=== PATIENT | female | born 1985 | race Caucasian/White ===

== ENCOUNTER → 2016-08-31 | Day surgery (SDC) | payer MEDICAID ==
[~2016-08-31] MED LIST: Sodium Chloride 0.9% 1,000 ML IV SCH; Sodium Chloride 0.9% 10 ML Syringe FLUSH PRN
== END ==
LOC: LB.SDS 09:22
PROVIDERS: ATTEND Surgery
DX: K30 Functional dyspepsia (principal); Z53.8 Procedure and treatment not carried out for other reasons

== ENCOUNTER 2016-09-28 09:21 | Day surgery (SDC) | payer MEDICAID ==
[2016-09-28] MEDS ORDERED: Propofol 200 MG/20 ML SDV ONE ×2 (10:45→11:15)
[2016-09-28 14:32] VITALS: BP 128/70
--- NOTE | 2016-09-30 12:55 | OR ---
DATE OF OPERATION: 09/28/2016 PREOPERATIVE DIAGNOSES: Epigastric pain and heartburn. POSTOPERATIVE DIAGNOSES: Bile reflux and gastritis. PROCEDURE: Esophagogastroduodenoscopy with cold forceps biopsies. ANESTHESIA: General per the Department of Anesthesia. ESTIMATED BLOOD LOSS: Less than 20 mL. OPERATIVE REPORT: After informed consent was obtained, the patient was taken to the endoscopy suite and placed in the left lateral decubitus position with all pressure points, bony prominences, and neurovascular bundles padded appropriately and with no undue tension. The Department of Anesthesia initiated cardiopulmonary monitoring and performed sedation. A bite block was placed carefully in the patient's mouth to protect the teeth. Through the bite block, a well lubricated Olympus endoscope was advanced into the oropharynx and guided under direct visualization into the esophagus. The endoscope was advanced through the esophagus across the gastroesophageal junction and into the body of the stomach where a copious amount of bile was encountered, although the patient had not been retching. The scope was then advanced through the pylorus and into the duodenum where no further pathology was encountered. The scope was withdrawn back into the body of the stomach. The bile was aspirated using the scope suction. Streak gastritis was noted and photographed. The scope was then retroflexed to view the gastroesophageal junction from below and no hiatal hernia or other pathology was identified. Cold forceps biopsies were taken of the antrum and also of the GE junction. The scope was straightened, as much air as possible was evacuated, and the scope was slowly withdrawn throughout the course of the esophagus. Again, no further pathology was appreciated. The scope was removed from the oropharynx and the bite block was removed. The patient tolerated the procedure well and was taken to the postanesthesia care unit in stable condition. A discussion about reflux was held with the patient and her mother and a prescription for cholestyramine was given for 4 times a day to be used for 2 weeks. The patient also was instructed to eat 5-6 small meals daily to allow fluid to mix with the bile for the ongoing future to avoid further bile reflux and subsequent gastritis and heartburn. NO/ELVIRA /[id number]
== END 2016-09-28 12:20 | disposition home or self-care (01) ==
LOC: LB.SDS 09:21
PROVIDERS: ATTEND Surgery
DX: K29.70 Gastritis, unspecified, without bleeding (principal); Z88.1 Allergy status to other antibiotic agents; Z88.2 Allergy status to sulfonamides; Z88.8 Allergy status to other drugs, medicaments and biological substances; Z79.899 Other long term (current) drug therapy
CPT/HCPCS: 43239; J2704; J7040; J7050; 88305

== ENCOUNTER 2017-02-27 06:42 | Emergency (ER) | payer MEDICAID ==
[2017-02-27] MEDS ORDERED: Ondansetron 4 MG Tab.DIS ONE (06:50)
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
[2017-02-27 08:30] VITALS: BP 137/89
--- NOTE | 2017-02-27 14:57 | CT ---
DATE OF SERVICE: 02/27/17 CLINICAL DATA: Head trauma. UNENHANCED BRAIN CT: Multi slice acquisition through the brain without IV contrast was performed. There is a 12 mm rounded low density focus in the area of the lentiform nucleus on the left. This is nonspecific in appearance. It may represent an old lacunar infarct. Other etiologies should at least be considered. The exam is otherwise negative. No masses. No intracranial hemorrhage. No evidence of acute or subacute infarct. There is minimal mucosal thickening in the ethmoid sinuses, consistent with chronic sinusitis. [id number] MTDD
== END 2017-02-27 08:00 | disposition home or self-care (01) ==
LOC: LB.ED 06:42
DX: S09.90XA Unspecified injury of head, initial encounter (principal); S60.212A Contusion of left wrist, initial encounter; S00.12XA Contusion of left eyelid and periocular area, initial encounter; S00.83XA Contusion of other part of head, initial encounter; F17.210 Nicotine dependence, cigarettes, uncomplicated; Z88.2 Allergy status to sulfonamides; Z79.899 Other long term (current) drug therapy; W22.8XXA Striking against or struck by other objects, initial encounter
CPT/HCPCS: 70450; 99283; A9270

== ENCOUNTER 2017-08-30 12:21 | Emergency (ER) | payer MEDICAID ==
[2017-08-30] MEDS ORDERED: Ondansetron 4 MG Tab.DIS PO ONE (12:49)
[2017-08-30] MEDS ORDERED: Ondansetron 4 MG Tab.DIS ONE (12:52)
[2017-08-30 13:31] VITALS: BP 148/91
--- NOTE | 2017-08-30 17:06 | CR ---
DATE OF SERVICE: 08/30/17 CLINICAL DATA: Abd pain SUPINE AND UPRIGHT ABDOMEN: No dilated loops of bowel. There are a few scattered air-fluid levels in the right colon on the upright film. Colitis should be considered. Followup imaging is recommended if clinically indicated. No free air. There are surgical clips in the right upper abdomen. [id number] [facility]
--- NOTE | 2017-08-30 22:14 | ER ---
DATE OF SERVICE: 08/30/2017 HISTORY OF PRESENT ILLNESS: A 32-year-old lady here with her mother with complaints of waking up this morning with nausea, abdominal discomfort, and loose stools. The patient states that she has vomited five times since she woke up this morning and she has had three loose BMs. The patient has not been running a fever. She denies any falls or injuries. She is pointing to the central area of the abdomen when describing the area of discomfort. The patient states she is having a hard time keeping down any liquid or food. No other family members are currently sick. The patient's last menstrual period was 2 weeks ago. OBJECTIVE: GENERAL APPEARANCE: The patient is awake and alert. No obvious respiratory distress. VITAL SIGNS: Reviewed. Blood pressure 148/91. She is afebrile. Pulse is 82, respirations 16, O2 sats are 97%. LUNGS: Clear. CARDIAC: Heart sounds distinct without murmurs. ABDOMEN: Soft. There is tenderness without guarding involving the mid portion of the abdomen just above the umbilicus and to the right side. Bowel sounds are present and active. SKIN: Warm and dry. INITIAL TREATMENT: Zofran 4 mg was given sublingually. LABORATORY DATA: Labs today include a CBC which has a normal white count with decreased viral markers. CMP is unremarkable and UA is normal. DIAGNOSIS: Gastroenteritis. TREATMENT PLAN: The Zofran resolved the patient's nausea. We will send her home. I will give her a script for 6 more Zofran tablets to use every 4 hours as needed for nausea. Oral rehydration techniques were discussed at length with the patient, and she is to rest for a day or 2. Followup should be if her symptoms get worse or if she is not improving within a couple of days. I gave her slip to be off work today and possibly tomorrow. CRS/MODL /[id number] LILIANA
== END 2017-08-30 13:50 | disposition home or self-care (01) ==
LOC: LB.ED 12:21
DX: K52.9 Noninfective gastroenteritis and colitis, unspecified (principal)
CPT/HCPCS: 36415; 74019; 80053; 81001; 85025; 99284; A9270-GY

== ENCOUNTER 2018-08-26 10:22 | Emergency (ER) | payer MEDICAID ==
--- NOTE | 2018-08-26 18:54 | ER ---
SUBJECTIVE: The patient is a 33-year-old female who had a right ACL repair done. This was a secondary repair. She had a previous one done. She had this surgery done yesterday. She is concerned because the blood soaked through the bandages. This morning, she took the bandages off and replaced them at about 8 o'clock. She presented here about 2-1/2 to 3 hours later. The patient did have some blood on the dressing, but only a few mL. The dressing was removed, and it did not appear to be actively bleeding. She was concerned because she had a temperature of 99.2. She also notes she has some pain in the knee. She got 15 pain pills from the surgeon, and she states they told her that if she needed anymore, she should come here. I discussed with her that the surgeon is the one who is prescribing her pain medication, and she will need to get them from the surgeon for this problem. Otherwise, she seems to be doing okay. ALLERGIES: BACTRIM AND COMPAZINE. CURRENT MEDICATIONS: Trazodone, venlafaxine, and sertraline. She is on Xarelto 20 mg p.o. daily. She had been getting Lovenox prior to her surgery. She has a history of DVTs and has a blood clotting disorder. She also takes Klonopin. I am not sure that medication list is accurate. It is from the computer, but she is definitely taking the Xarelto. PHYSICAL EXAMINATION: GENERAL: She is alert, oriented, in no apparent distress. VITAL SIGNS: Temperature as noted is 99.2, pulse is 78, blood pressure is 154/81, O2 saturation is 97% on room air. EXTREMITIES: The knee incision has a little bit of moisture on the Steri-Strips and some have peeled off. It appears to have subcuticular sutures, but I did not remove all of the Steri-Strips. There is currently no active bleeding. The knee is not particularly swollen. It is not ecchymotic. There is some mild warmth but no erythema, and it does not appear to have a hematoma in the knee or infection at this point looking at the skin. Again, it is not actively bleeding. The incision area is moist, but there is no obvious blood draining from it. After taking off the bandage and monitoring in the ER, there is no new blood coming out of it. She probably has in the last couple of hours a few mL of blood on the dressing. She is on Xarelto and again, there is no active bleeding at the skin site and it does not appear to be accumulating a hematoma. Again, there is no ecchymosis other than very minimal at the very posterior aspect of the incision. It has just a slight bluish tint, but again, it is not swollen. There is no obvious hematoma, and the knee appears to be doing well. ASSESSMENT: Postoperative bleeding. At this point, I do not think the patient needs any intervention as it should stop on its own. I would continue to change the dressings and if she feels the bleeding is excessive or is worsening, would have her return to clinic. As far as her pain medications go, she does have a previous history of substance abuse, and this is being managed by the surgeon, and she will need to get any refills for that from the surgeon. Again, no signs of infection at present or any bleeding into the incision, and the wound itself. The skin incision is not actively bleeding. MENDEZ/ELVIRA /[id number]
== END 2018-08-26 10:55 | disposition home or self-care (01) ==
LOC: LB.ED 10:22
DX: M96.830 Postprocedural hemorrhage of a musculoskeletal structure following a musculoskeletal system procedure (principal); Z79.899 Other long term (current) drug therapy; Z88.1 Allergy status to other antibiotic agents; Z88.8 Allergy status to other drugs, medicaments and biological substances
CPT/HCPCS: 99283

== ENCOUNTER 2018-11-01 15:45 | Emergency (ER) | payer MEDICAID ==
--- NOTE | 2018-11-01 16:06 | EDM.PDOC ---
ED HPI GENERAL MEDICAL PROBLEM - General Chief Complaint: Headache Stated Complaint: Headache Time Seen by Provider: 11/01/18 16:06 Source of Information: Reports: Patient History Limitations: Reports: No Limitations - History of Present Illness INITIAL COMMENTS - FREE TEXT/NARRATIVE: This is a 33yo F here for a headache for the past week since Tuesday. She states the pain of the posterior right scalp woke her up from sleep at a 10/10. She felt a sharp knife like sensation of the scalp and skull near the right base move up into the scalp and to the ear. It improved to a 4/10. A few days later she felt the pain again and it was a throbbing that was severe and her face turned all red. Her mother is worried of a brain bleed as the patient is on Xarelto and has been for many years due to her diagnosis of Factor V. Patient denies any visual concerns, no weaknesses, no balance or memory issues. 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 - Related Data Allergies Allergy/AdvReac Type Severity Reaction Status Date / Time sulfamethoxazole Allergy Rash Verified 11/01/18 16:11 [From Bactrim] trimethoprim [From Bactrim] Allergy Rash Verified 11/01/18 16:11 prochlorperazine maleate AdvReac Severe Agitation Verified 11/01/18 16:11 [From Compazine] Home Meds: Home Meds Rivaroxaban [Xarelto] 20 mg PO DAILY 09/27/16 [History] Ibuprofen 800 mg PO TID 02/05/18 [History] ALPRAZolam [Alprazolam] 0.25 mg PO TID PRN 11/01/18 [History] Gabapentin [Neurontin] 100 mg PO TID 11/01/18 [History] Mirtazapine 30 mg PO QPM PRN 11/01/18 [History] PARoxetine HCl [Paroxetine HCl] 20 mg PO DAILY 11/01/18 [History] PARoxetine HCl [Paroxetine HCl] 30 mg PO DAILY 11/01/18 [History] QUEtiapine [SEROquel] 50 mg PO TID PRN 11/01/18 [History] hydrOXYzine HCl [Atarax] 50 - 100 mg PO TID PRN 11/01/18 [History] Past Medical History HEENT History: Reports: Impaired Vision Other HEENT History: Pt had a tooth pulled on tuesday Cardiovascular History: Reports: Blood Clots/VTE/DVT, Hypertension, Other (See Below) Other Cardiovascular History: Factor S Factor V Gastrointestinal History: Reports: Other (See Below) Other Gastrointestinal History: Hx Duodenal Spasms 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 Musculoskeletal History: Reports: Fracture Other Musculoskeletal History: ACL, LCL surgery Neurological History: Reports: Other (See Below) Other Neuro History: [place] Palsey Psychiatric History: Reports: Anxiety, Depression Endocrine/Metabolic History: Reports: Obesity/BMI 30+ Hematologic History: Reports: Bleeding Disorder Other Hematologic History: S factor 5, 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 Oncologic (Cancer) History: Reports: Other (See Below) Other Oncologic History: Hx precancerous pap smear - Infectious Disease History Infectious Disease History: Reports: Chicken Pox - Past Surgical History HEENT Surgical History: Reports: Tonsillectomy, Other (See Below) Other HEENT Surgeries/Procedures: adnoids, current history of abcess of multiple teeth Cardiovascular Surgical History: Reports: None GI Surgical History: Reports: Cholecystectomy Musculoskeletal Surgical History: Reports: Other (See Below) Other Musculoskeletal Surgeries/Procedures:: meniscus repair - Right , ACL , - Left ACL, LCL, meniscus Social & Family History - Family History Family Medical History: Noncontributory - Caffeine Use Caffeine Use: Reports: Energy Drinks ED ROS GENERAL - Review of Systems Review Of Systems: ROS reveals no pertinent complaints other than HPI. - Physical Exam Exam: See Below Exam Limited By: No Limitations General Appearance: Alert, WD/WN, Mild Distress Eye Exam: Bilateral Eye: EOMI, PERRL Ears: Normal External Exam Nose: Normal Inspection Throat/Mouth: Normal Inspection Head Exam: Atraumatic, Normocephalic Neck: Normal Inspection Respiratory/Chest: No Respiratory Distress, Lungs Clear, Normal Breath Sounds Cardiovascular: Normal Peripheral Pulses, Regular Rate, Rhythm GI/Abdominal: Normal Bowel Sounds Neuro Exam (Abbreviated): Alert, Oriented, CN II-XII Intact, Normal Cognition, Normal Gait, Normal Reflexes, No Motor/Sensory Deficits Back Exam: Normal Inspection Extremities: Normal Inspection Psychiatric: Normal Affect, Normal Mood Skin Exam: Warm, Dry, Intact Course - Vital Signs Last Recorded V/S: Last Vital Signs Temp 36.7 C 11/01/18 15:51 Pulse 96 11/01/18 15:51 Resp 18 11/01/18 15:51 BP 147/93 H 11/01/18 15:51 Pulse Ox 99 11/01/18 15:51 - Orders/Labs/Meds Labs: Laboratory Tests 11/01/18 11/01/18 11/01/18 Range/Units 16:10 16:10 16:10 WBC 13.1 H (4.0-11.0) K/uL RBC 5.06 (3.80-5.80) M/uL Hgb 14.2 (11.5-16.5) g/dL Hct 41.8 (37.0-47.0) % MCV 83 (76-96) fL MCH 28.1 (27.0-32.0) pg MCHC 34.0 (31.0-35.0) g/dL RDW 13.2 (11.0-16.0) % Plt Count 243 (150-500) K/uL MPV 10.1 H (6.0-10.0) fL Neut % (Auto) 75.6 H (45.0-70.0) % Lymph % (Auto) 19.7 L (20.0-40.0) % Dunn % (Auto) 4.1 (3.0-10.0) % Eos % (Auto) 0.5 L (1.0-5.0) % Baso % (Auto) 0.1 (0.0-0.5) % Neut # (Auto) 9.94 H (2.00-7.50) K/uL Lymph # (Auto) 2.59 (1.50-4.00) K/uL Dunn # (Auto) 0.54 (0.20-0.80) K/uL Eos # (Auto) 0.06 (0.04-0.40) K/uL Baso # (Auto) 0.01 L (0.02-0.10) K/uL PT 9.0 D (9.0-11.5) sec INR 0.9 L D (1.0-3.5) Sodium 138 (136-145) mmol/L Potassium 4.2 (3.5-5.1) mmol/L Chloride 102 (98-107) mmol/L Carbon Dioxide 24.8 (21.0-32.0) mmol/L Anion Gap 15.4 H (5.0-15.0) mmol/L BUN 17 D (8-26) mg/dL Creatinine 0.83 (0.55-1.02) mg/dL Est Cr Clr Drug Dosing TNP Estimated GFR (MDRD) > 60 (>60) MLS/MIN BUN/Creatinine Ratio 20.5 (6-25) Glucose 111 H (74-100) mg/dL Calcium 8.8 (8.5-10.1) mg/dL Total Bilirubin 0.2 D (0.0-1.0) mg/dL AST 12 L (15-37) U/L ALT 25 (12-78) U/L Alkaline Phosphatase 90 (46-116) U/L Total Protein 7.5 (6.4-8.2) g/dL Albumin 3.8 (3.4-5.0) g/dL Globulin 3.7 (2.2-4.2) g/dL Albumin/Globulin Ratio 1.0 (0.8-2.0) TSH, Ultra Sensitive 1.555 (0.358-3.740) uIU/mL Departure - Departure Time of Disposition: 16:45 Disposition: Home, Self-Care 01 Condition: Good Clinical Impression: Headache Qualifiers: Headache type: unspecified Headache chronicity pattern: acute headache Intractability: intractable Qualified Code(s): R51 - Headache - Discharge Information Instructions: Methocarbamol tablets Referrals: PCP,None [Primary Care Provider] - Forms: ED Department Discharge Additional Instructions: Increase Gabapentin to 200mg three times a day. Take Methocarbamol 1 tab three times a day as needed. Do not take it and drive or operate any heavy machinery. Wear the soft cervical collar as needed for comfort. If pain is not better in 3 weeks, follow up with primary provider. - Problem List & Annotations (1) Headache SNOMED Code(s): 25144361 Code(s): R51 - HEADACHE Status: Acute Current Visit: Yes Qualifiers: Headache type: unspecified Headache chronicity pattern: acute headache Intractability: intractable Qualified Code(s): R51 - Headache - Problem List Review Problem List Initiated/Reviewed/Updated: Yes - Assessment/Plan Plan: Counseled on supportive care and management. Discussed rest and close monitoring and f/u in clinic or ER as needed. Discussed use of Robaxin and increased gabapentin for up to 1 month and then taper to her regular dose. F/u as directed and as needed.
[2018-11-01 16:18] VITALS: BP 147/93
[2018-11-01] MEDS ORDERED: Methocarbamol 500 MG Tab ONE (16:40)
[2018-11-01] MEDS ORDERED: Acetaminophen/oxyCODONE 325-5 MG Tab ONE (16:40)
--- NOTE | 2018-11-01 16:48 | CT ---
DATE OF SERVICE: 11/01/2018 CLINICAL DATA: Headache Unenhanced brain CT: Multislice axial acquisition was performed. Comparison is made to a prior exam dated 02/27/2017. There is a persistent 12 mm low density lesion in the left basal ganglia. It is unchanged in size and appearance from the prior exam. No new abnormalities. No intracranial hemorrhage. No evidence of acute or subacute infarct. No osseous abnormalities. Impression: No acute abnormalities. MTDD
== END 2018-11-01 16:13 | disposition home or self-care (01) ==
LOC: LB.ED 15:45
DX: R51 Headache (principal); I10 Essential (primary) hypertension; F41.9 Anxiety disorder, unspecified; F32.9 Major depressive disorder, single episode, unspecified; Z79.899 Other long term (current) drug therapy; Z88.8 Allergy status to other drugs, medicaments and biological substances; Z88.2 Allergy status to sulfonamides; Z88.1 Allergy status to other antibiotic agents
CPT/HCPCS: 36415; 70450; 80053; 84443; 85025; 85610; 96372; 99285; A9270-GY

== ENCOUNTER 2018-11-04 15:26 | Emergency (ER) | payer MEDICAID ==
[2018-11-04] MEDS ORDERED: Sodium Chloride 0.9% 10 ML Syringe FLUSH PRN (16:38)
[2018-11-04] MEDS: Ondansetron 4 MG Tab.DIS PO ONE (16:55)
[2018-11-04] MEDS: LORazepam 1 MG Tab PO ONE (16:55)
[2018-11-04] MEDS: Acetaminophen/oxyCODONE 325-5 MG Tab PO ONE (16:55)
--- NOTE | 2018-11-04 17:01 | EDM.PDOC ---
ED HPI GENERAL MEDICAL PROBLEM - General Chief Complaint: General Stated Complaint: HEADACHE Time Seen by Provider: 11/04/18 16:30 Source of Information: Reports: Patient, Family History Limitations: Reports: No Limitations - History of Present Illness INITIAL COMMENTS - FREE TEXT/NARRATIVE: This is a 33yo F here for 10/10 headache mainly in the right occipital area. She states her trigger point injections did help until about 7pm last night. She states the pain is as bad as it was before, sharp and radiates up above the ear and the scalp. She denies any visual issues or complaints. She has been into the ER previously and received increased gabapentin, methocarbamol and percocet, then in the clinic twice - once for a solumedrol injection and prednisone taper and the other trigger point injections. Onset: Sudden (onset was sudden on Sat ) Duration: Day(s): Location: Reports: Head Quality: Reports: Ache, Stabbing Severity: Severe Improves with: Reports: Medication (pain meds, trigger point injection) Worsens with: Reports: None Associated Symptoms: Reports: Headaches Treatments LEGAL ASSISTANT: Reports: NSAIDS, Other Medication(s) Other Treatments LEGAL ASSISTANT: Robaxin Right Neck Pain Score (Numeric/FACES): 8 - Related Data Allergies Allergy/AdvReac Type Severity Reaction Status Date / Time sulfamethoxazole Allergy Rash Verified 11/04/18 15:53 [From Bactrim] trimethoprim [From Bactrim] Allergy Rash Verified 11/04/18 15:53 prochlorperazine maleate AdvReac Severe Agitation Verified 11/04/18 15:53 [From Compazine] Home Meds: Home Meds Rivaroxaban [Xarelto] 20 mg PO DAILY 09/27/16 [History] Ibuprofen 800 mg PO TID PRN 02/05/18 [History] Gabapentin [Neurontin] 100 mg PO TID 11/01/18 [History] PARoxetine HCl [Paroxetine HCl] 20 mg PO DAILY 11/01/18 [History] PARoxetine HCl [Paroxetine HCl] 30 mg PO DAILY 11/01/18 [History] QUEtiapine [SEROquel] 50 mg PO BID PRN 11/01/18 [History] hydrOXYzine HCl [Atarax] 50 - 100 mg PO TID PRN 11/01/18 [History] predniSONE 30 mg PO DAILY 11/04/18 [History] Past Medical History HEENT History: Reports: Impaired Vision Other HEENT History: Pt had a tooth pulled on tuesday Cardiovascular History: Reports: Blood Clots/VTE/DVT, Hypertension, Other (See Below) Other Cardiovascular History: Factor S Factor V Gastrointestinal History: Reports: Other (See Below) Other Gastrointestinal History: Hx Duodenal Spasms 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 Musculoskeletal History: Reports: Fracture Other Musculoskeletal History: ACL, LCL surgery Neurological History: Reports: Other (See Below) Other Neuro History: [place] Palsey Psychiatric History: Reports: Anxiety, Depression Endocrine/Metabolic History: Reports: Obesity/BMI 30+ Hematologic History: Reports: Bleeding Disorder Other Hematologic History: S factor 5, 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 Oncologic (Cancer) History: Reports: Other (See Below) Other Oncologic History: Hx precancerous pap smear - Infectious Disease History Infectious Disease History: Reports: Chicken Pox - Past Surgical History HEENT Surgical History: Reports: Tonsillectomy, Other (See Below) Other HEENT Surgeries/Procedures: adnoids, current history of abcess of multiple teeth Cardiovascular Surgical History: Reports: None GI Surgical History: Reports: Cholecystectomy Musculoskeletal Surgical History: Reports: Other (See Below) Other Musculoskeletal Surgeries/Procedures:: meniscus repair - Right , ACL , - Left ACL, LCL, meniscus Social & Family History - Family History Family Medical History: Noncontributory - Caffeine Use Caffeine Use: Reports: Energy Drinks ED ROS GENERAL - Review of Systems Review Of Systems: ROS reveals no pertinent complaints other than HPI. Constitutional: Reports: No Symptoms HEENT: Reports: No Symptoms Respiratory: Reports: No Symptoms Cardiovascular: Reports: No Symptoms Endocrine: Reports: No Symptoms GI/Abdominal: Reports: No Symptoms : Reports: No Symptoms Musculoskeletal: Reports: No Symptoms Skin: Reports: No Symptoms Neurological: Reports: Headache Psychiatric: Reports: Anxiety ED EXAM, GENERAL - Physical Exam Exam: See Below Exam Limited By: No Limitations General Appearance: Alert, WD/WN, Moderate Distress Eye Exam: Bilateral Eye: EOMI, PERRL Ears: Normal External Exam Nose: Normal Inspection Throat/Mouth: Normal Inspection Head: Atraumatic, Normocephalic Neck: Normal Inspection, Supple Respiratory/Chest: No Respiratory Distress, Lungs Clear, Normal Breath Sounds Cardiovascular: Normal Peripheral Pulses, Regular Rate, Rhythm GI/Abdominal: Normal Bowel Sounds Extremities: Normal Inspection Neurological: Alert, Oriented, CN II-XII Intact, Normal Cognition, Normal Gait, Normal Reflexes, No Motor/Sensory Deficits Psychiatric: Anxious, Tearful Skin Exam: Warm, Dry, Intact Course - Orders/Labs/Meds Orders: Active Orders 24 hr Category Date Time Status Sodium Chloride 0.9% [Saline Flush] Med 11/04/18 16:38 Active 10 ml FLUSH ASDIRECTED PRN Peripheral IV Insertion Adult [OM.PC] Routine Oth 11/04/18 16:38 Ordered Medication Orders Sodium Chloride (Saline Flush) 10 ml FLUSH ASDIRECTED PRN PRN Reason: Keep Vein Open Meds: Medications Generic Name Dose Route Start Last Admin Trade Name Freq PRN Reason Stop Dose Admin Sodium Chloride 10 ml 11/04/18 16:38 Saline Flush FLUSH ASDIRECTED PRN Keep Vein Open Discontinued Medications Generic Name Dose Route Start Last Admin Trade Name Freq PRN Reason Stop Dose Admin Hydromorphone HCl 0.5 mg 11/04/18 17:29 11/04/18 17:29 Dilaudid IVPUSH 11/04/18 17:30 0.5 mg ONETIME ONE Administration Lorazepam 1 mg 11/04/18 17:12 11/04/18 16:55 Ativan PO 11/04/18 17:13 1 mg ONETIME ONE Administration Ondansetron HCl 4 mg 11/04/18 17:13 11/04/18 16:55 Zofran Odt PO 11/04/18 17:14 4 mg ONETIME ONE Administration Oxycodone/Acetaminophen 1 tab 11/04/18 17:12 11/04/18 16:55 Percocet 325-5 Mg PO 11/04/18 17:13 1 tab ONETIME ONE Administration Departure - Departure Time of Disposition: 18:30 Disposition: DC/Tfer to Acute Hospital 02 Condition: Good Clinical Impression: Occipital headache - Discharge Information Forms: ED Department Discharge - Problem List & Annotations (1) Occipital headache SNOMED Code(s): 866398 Code(s): R51 - HEADACHE Status: Acute Priority: High Current Visit: Yes - Problem List Review Problem List Initiated/Reviewed/Updated: Yes - My Orders Last 24 Hours: My Active Orders 11/04/18 16:38 Sodium Chloride 0.9% [Saline Flush] 10 ml FLUSH ASDIRECTED PRN Peripheral IV Insertion Adult [OM.PC] Routine - Assessment/Plan Last 24 Hours: My Active Orders 11/04/18 16:38 Sodium Chloride 0.9% [Saline Flush] 10 ml FLUSH ASDIRECTED PRN Peripheral IV Insertion Adult [OM.PC] Routine Plan: Discussed plan of care with Neurology - recommended CTA head and neck to rule out dissection (unable to provide this imaging here). Patient to be transferred to [facility] for CTA and further management. Discussed IV depakote but we do not carry that medication as IV. Patient to be transferred for further workup to [facility] ER with Dr. Barrow to rule out dissection and further management. Patient will go by [facility]
[2018-11-04] MEDS: HYDROmorphone 2 MG/ML Syringe IVPUSH ONE ×2 (17:29→18:38)
[2018-11-04 18:38] VITALS: BP 172/86
[2018-11-04] MEDS: HYDROmorphone 2 MG/ML SDV ONE (18:50)
[2018-11-04] MEDS ORDERED: Ondansetron 4 MG Tab.DIS ONE (18:54)
[2018-11-04] MEDS ORDERED: Ondansetron 4 MG/2 ML SDV ONE (18:54)
== END 2018-11-04 18:55 ==
LOC: LB.ED 15:26
DX: R51 Headache (principal); I10 Essential (primary) hypertension; F41.9 Anxiety disorder, unspecified; F32.9 Major depressive disorder, single episode, unspecified; Z88.2 Allergy status to sulfonamides; Z79.899 Other long term (current) drug therapy; Z88.1 Allergy status to other antibiotic agents
CPT/HCPCS: 96374; 96376; 99284-25; A0425; A0429; A9270-GY; J1170

== ENCOUNTER 2020-03-03 08:07 | Emergency (ER) | payer MEDICAID ==
--- NOTE | 2020-03-03 09:15 | EDM.PDOC ---
ED HPI GENERAL MEDICAL PROBLEM - General Chief Complaint: General Stated Complaint: LEFT SIDE PAIN Time Seen by Provider: 03/03/20 08:50 Source of Information: Reports: Patient - History of Present Illness INITIAL COMMENTS - FREE TEXT/NARRATIVE: left flank pain x 2 days. Some radiation into abdomen. Denies any CP, fevers, cough, nausea, or urinary symptoms. She woke with the pain and attributed it to working more lately. Patient regularly drinks energy drinks and this AM had 2 energy drinks. LMP 1 month ago, denies any bowel issues, has regular BM's. Has been taking ibuprofen at home for the pain with minimal relief. 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 Left Lower Back Pain Score (Numeric/FACES): 6 - Related Data Allergies Allergy/AdvReac Type Severity Reaction Status Date / Time sulfamethoxazole Allergy Rash Verified 11/04/18 15:53 [From Bactrim] trimethoprim [From Bactrim] Allergy Rash Verified 11/04/18 15:53 prochlorperazine maleate AdvReac Severe Agitation Verified 11/04/18 15:53 [From Compazine] Home Meds: Home Meds Rivaroxaban [Xarelto] 20 mg PO DAILY 09/27/16 [History] Ibuprofen 800 mg PO TID PRN 02/05/18 [History] Gabapentin [Neurontin] 800 mg PO QID 11/01/18 [History] ARIPiprazole [Abilify] 15 mg PO DAILY 03/03/20 [History] Venlafaxine [Effexor XR] 75 mg PO DAILY 03/03/20 [History] Past Medical History HEENT History: Reports: Impaired Vision Other HEENT History: Pt had a tooth pulled on tuesday Cardiovascular History: Reports: Blood Clots/VTE/DVT, Hypertension, Other (See Below) Other Cardiovascular History: Factor S Factor V Gastrointestinal History: Reports: Other (See Below) Other Gastrointestinal History: Hx Duodenal Spasms 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 Musculoskeletal History: Reports: Fracture Other Musculoskeletal History: ACL, LCL surgery Neurological History: Reports: Other (See Below) Other Neuro History: [place] Palsey Psychiatric History: Reports: Anxiety, Depression Endocrine/Metabolic History: Reports: Obesity/BMI 30+ Hematologic History: Reports: Bleeding Disorder Other Hematologic History: S factor 5, 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 Oncologic (Cancer) History: Reports: Other (See Below) Other Oncologic History: Hx precancerous pap smear - Infectious Disease History Infectious Disease History: Reports: Chicken Pox - Past Surgical History HEENT Surgical History: Reports: Tonsillectomy, Other (See Below) Other HEENT Surgeries/Procedures: adnoids, current history of abcess of multiple teeth Cardiovascular Surgical History: Reports: None GI Surgical History: Reports: Cholecystectomy Musculoskeletal Surgical History: Reports: Other (See Below) Other Musculoskeletal Surgeries/Procedures:: meniscus repair - Right , ACL , - Left ACL, LCL, meniscus Social & Family History - Family History Family Medical History: Noncontributory - Caffeine Use Caffeine Use: Reports: Energy Drinks ED ROS GENERAL - Review of Systems Review Of Systems: See Below Constitutional: Reports: No Symptoms HEENT: Reports: No Symptoms Respiratory: Reports: No Symptoms Cardiovascular: Reports: No Symptoms GI/Abdominal: Reports: Abdominal Pain : Reports: No Symptoms Musculoskeletal: Reports: Back Pain Skin: Reports: No Symptoms Neurological: Reports: Numbness (numbness on skin of left flank, states it feels like she put icy hot on) Psychiatric: Reports: No Symptoms Hematologic/Lymphatic: Reports: Other (Factor 5 and 7 +, takes xarelto daily, ) Immunologic: Reports: No Symptoms ED EXAM, GENERAL - Physical Exam Exam: See Below Exam Limited By: No Limitations General Appearance: Alert, No Apparent Distress Ears: Normal External Exam Nose: Normal Inspection Head: Atraumatic Neck: Normal Inspection, Full Range of Motion Respiratory/Chest: No Respiratory Distress, Lungs Clear, Normal Breath Sounds Cardiovascular: Normal Peripheral Pulses, No Edema, No JVD, No Murmur, Tachycardia Peripheral Pulses: 3+: Radial (L), Radial (R) GI/Abdominal: Normal Bowel Sounds, Soft, Non-Tender Back Exam: Normal Inspection, Full Range of Motion, CVA Tenderness (L). No: CVA Tenderness (R) Extremities: Normal Inspection, Normal Range of Motion, Non-Tender, No Pedal Edema, Normal Capillary Refill Neurological: Alert, Oriented, Normal Cognition, Normal Gait, No Motor/Sensory Deficits Psychiatric: Normal Affect, Normal Mood Skin Exam: Warm, Dry, Intact Lymphatic: No Adenopathy Course - Vital Signs Last Recorded V/S: Last Vital Signs Temp 97.7 F 03/03/20 09:51 Pulse 80 03/03/20 09:51 Resp 16 03/03/20 09:51 BP 121/71 03/03/20 09:51 Pulse Ox 96 03/03/20 09:51 - Orders/Labs/Meds Orders: Active Orders 24 hr Category Date Time Status Kidney Stone Protocol [CT] Stat Exams 03/03/20 09:20 Ordered Sodium Chloride 0.9% [Normal Saline] 1,000 ml Med 03/03/20 09:30 Active IV ASDIRECTED Medication Orders Sodium Chloride (Normal Saline) 1,000 mls @ 1,000 mls/hr IV ASDIRECTED GAETANO Last Admin: 03/03/20 09:15 Dose: 999 mls/hr Documented by: Labs: Laboratory Tests 03/03/20 03/03/20 03/03/20 Range/Units 08:32 08:32 08:49 WBC 7.6 D (4.0-11.0) K/uL RBC 4.82 (3.80-5.80) M/uL Hgb 14.0 (11.5-16.5) g/dL Hct 40.4 (37.0-47.0) % MCV 84 (76-96) fL MCH 29.0 (27.0-32.0) pg MCHC 34.7 (31.0-35.0) g/dL RDW 12.9 (11.0-16.0) % Plt Count 212 D (150-500) K/uL MPV 10.5 H (6.0-10.0) fL Neut % (Auto) 45.5 (45.0-70.0) % Lymph % (Auto) 38.0 (20.0-40.0) % [place] % (Auto) 7.7 (3.0-10.0) % Eos % (Auto) 8.4 H (1.0-5.0) % Baso % (Auto) 0.4 (0.0-0.5) % Neut # (Auto) 3.48 (2.00-7.50) K/uL Lymph # (Auto) 2.90 (1.50-4.00) K/uL [place] # (Auto) 0.59 (0.20-0.80) K/uL Eos # (Auto) 0.64 H (0.04-0.40) K/uL Baso # (Auto) 0.03 (0.02-0.10) K/uL Sodium 139 (136-145) mmol/L Potassium 4.2 (3.5-5.1) mmol/L Chloride 104 (98-107) mmol/L Carbon Dioxide 28.7 (21.0-32.0) mmol/L Anion Gap 10.5 (5.0-15.0) mmol/L BUN 8 D (8-26) mg/dL Creatinine 0.77 (0.55-1.02) mg/dL Est Cr Clr Drug Dosing 102.00 mL/min Estimated GFR (MDRD) > 60 (>60) MLS/MIN BUN/Creatinine Ratio 10.4 (6-25) Glucose 94 (74-100) mg/dL Calcium 8.7 (8.5-10.1) mg/dL Total Bilirubin 0.2 (0.0-1.0) mg/dL AST 23 (15-37) U/L ALT 31 (12-78) U/L Alkaline Phosphatase 101 (46-116) U/L Total Protein 7.1 (6.4-8.2) g/dL Albumin 3.6 (3.4-5.0) g/dL Globulin 3.5 (2.2-4.2) g/dL Albumin/Globulin Ratio 1.0 (0.8-2.0) Urine Color Yellow Urine Appearance Clear (CLEAR) Urine pH 5.0 (5.0-8.0) Ur Specific [place] 1.025 (1.003-1.030) Urine Protein Negative (NEGATIVE) mg/dL Urine Glucose (UA) Negative (NEGATIVE) mg/dL Urine Ketones Negative (NEGATIVE) mg/dL Urine Occult Blood Negative (NEGATIVE) Urine Nitrite Negative (NEGATIVE) Urine Bilirubin Negative (NEGATIVE) Urine Urobilinogen 0.2 (0.2-1.0) E.U./dL Ur Leukocyte Esterase Negative (NEGATIVE) Urine HCG, Qual (NEGATIVE) 03/03/20 Range/Units 08:49 WBC (4.0-11.0) K/uL RBC (3.80-5.80) M/uL Hgb (11.5-16.5) g/dL Hct (37.0-47.0) % MCV (76-96) fL MCH (27.0-32.0) pg MCHC (31.0-35.0) g/dL RDW (11.0-16.0) % Plt Count (150-500) K/uL MPV (6.0-10.0) fL Neut % (Auto) (45.0-70.0) % Lymph % (Auto) (20.0-40.0) % [place] % (Auto) (3.0-10.0) % Eos % (Auto) (1.0-5.0) % Baso % (Auto) (0.0-0.5) % Neut # (Auto) (2.00-7.50) K/uL Lymph # (Auto) (1.50-4.00) K/uL [place] # (Auto) (0.20-0.80) K/uL Eos # (Auto) (0.04-0.40) K/uL Baso # (Auto) (0.02-0.10) K/uL Sodium (136-145) mmol/L Potassium (3.5-5.1) mmol/L Chloride (98-107) mmol/L Carbon Dioxide (21.0-32.0) mmol/L Anion Gap (5.0-15.0) mmol/L BUN (8-26) mg/dL Creatinine (0.55-1.02) mg/dL Est Cr Clr Drug Dosing mL/min Estimated GFR (MDRD) (>60) MLS/MIN BUN/Creatinine Ratio (6-25) Glucose (74-100) mg/dL Calcium (8.5-10.1) mg/dL Total Bilirubin (0.0-1.0) mg/dL AST (15-37) U/L ALT (12-78) U/L Alkaline Phosphatase (46-116) U/L Total Protein (6.4-8.2) g/dL Albumin (3.4-5.0) g/dL Globulin (2.2-4.2) g/dL Albumin/Globulin Ratio (0.8-2.0) Urine Color Urine Appearance (CLEAR) Urine pH (5.0-8.0) Ur Specific [place] (1.003-1.030) Urine Protein (NEGATIVE) mg/dL Urine Glucose (UA) (NEGATIVE) mg/dL Urine Ketones (NEGATIVE) mg/dL Urine Occult Blood (NEGATIVE) Urine Nitrite (NEGATIVE) Urine Bilirubin (NEGATIVE) Urine Urobilinogen (0.2-1.0) E.U./dL Ur Leukocyte Esterase (NEGATIVE) Urine HCG, Qual Negative (NEGATIVE) Meds: Medications Generic Name Dose Route Start Last Admin Trade Name Freq PRN Reason Stop Dose Admin Sodium Chloride 1,000 mls @ 1,000 mls/hr 03/03/20 09:30 03/03/20 09:15 Normal Saline IV 999 mls/hr ASDIRECTED GAETANO Administration Departure - Departure Time of Disposition: 09:59 Disposition: Home, Self-Care 01 Clinical Impression: Muscle strain Back pain Qualifiers: Back pain location: low back pain Chronicity: acute Back pain laterality: left Sciatica presence: without sciatica Qualified Code(s): M54.5 - Low back pain - Discharge Information *PRESCRIPTION DRUG MONITORING PROGRAM REVIEWED*: Not Applicable *COPY OF PRESCRIPTION DRUG MONITORING REPORT IN PATIENT ANNIE: Not Applicable Instructions: Muscle Strain, [id number] Referrals: PCP,None [Primary Care Provider] - Forms: ED Department Discharge, ED Return to Work/School Form Additional Instructions: Rest, drink plenty of fluids. You may take ibuprofen 600mg every 6 hours with f ood for the pain. Return to ED for any increased or new concerning symptoms. Follow up with your primary doctor this week if symptoms persist. Sepsis Event Note (ED) - Evaluation Sepsis Screening Result: No Definite Risk - Focused Exam Vital Signs: Vital Signs Temp Pulse Resp BP Pulse Ox 03/03/20 09:51 97.7 F 80 16 121/71 96 03/03/20 08:49 97.9 F 102 H 16 137/105 H 97 - My Orders Last 24 Hours: My Active Orders 03/03/20 09:20 Kidney Stone Protocol [CT] Stat 03/03/20 09:30 Sodium Chloride 0.9% [Normal Saline] 1,000 ml IV ASDIRECTED - Assessment/Plan Last 24 Hours: My Active Orders 03/03/20 09:20 Kidney Stone Protocol [CT] Stat 03/03/20 09:30 Sodium Chloride 0.9% [Normal Saline] 1,000 ml IV ASDIRECTED Plan: Patient to [place] home, will return for any increased or new concerning symptoms. She will drink fluids and take ibuprofen for pain as directed. DDX: pyleonephritis, UTI, kidney stone, diverticulitis Negative CT scan.
[2020-03-03] MEDS ORDERED: Sodium Chloride 0.9% 1,000 ML IV SCH (09:30)
[2020-03-03 09:51] VITALS: BP 121/71; PULSE 80
--- NOTE | 2020-03-03 10:05 | CT ---
DATE OF SERVICE: 03/03/2020 CLINICAL DATA: Left flank pain Unenhanced abdomen and pelvic CT: Multi slice acquisition through the abdomen and pelvis without IV or oral contrast was performed. No priors. The lung bases are clear. The heart size is normal. The unenhanced liver appears normal. No focal hepatic lesions. The patient is status post cholecystectomy. The spleen appears normal. The pancreas appears normal. The right and left adrenals appear normal. The right and left kidneys appear normal. No nephrocalcinosis or nephrolithiasis. No hydronephrosis or hydroureter. The bladder is partially fluid filled. It appear normal. The appendix is not dilated. No evidence of appendicitis. There is a moderate amount of gas and stool present throughout the colon and rectum. There is mild diverticulosis of the descending and sigmoid colon. No evidence of diverticulitis. No free air. No free fluid. No dilated loops of bowel. No adenopathy. No aortic aneurysm. There is degenerative disc disease at multiple levels in the lower thoracic spine. Impression: No acute abnormalities. Other findings as discussed above. MTDD
== END 2020-03-03 10:04 | disposition home or self-care (01) ==
LOC: LB.ED 08:07
DX: S39.012A Strain of muscle, fascia and tendon of lower back, initial encounter (principal); F41.9 Anxiety disorder, unspecified; F32.9 Major depressive disorder, single episode, unspecified; E66.9 Obesity, unspecified; I10 Essential (primary) hypertension; Z88.2 Allergy status to sulfonamides; Z88.1 Allergy status to other antibiotic agents; Z86.718 Personal history of other venous thrombosis and embolism; Z79.01 Long term (current) use of anticoagulants; Z79.899 Other long term (current) drug therapy; X58.XXXA Exposure to other specified factors, initial encounter
CPT/HCPCS: 36415; 74176; 80053; 81003; 81025; 85025; 99284-25; J7030

== ENCOUNTER 2020-04-11 11:19 | Emergency (ER) | payer MEDICAID ==
[2020-04-11 12:34] VITALS: BP 145/93; PULSE 67
--- NOTE | 2020-04-11 14:04 | EDM.PDOC ---
ED HPI GENERAL MEDICAL PROBLEM - General Stated Complaint: RASH / ABCESSED TEETH Time Seen by Provider: 04/11/20 13:00 Source of Information: Reports: Patient History Limitations: Reports: No Limitations - History of Present Illness INITIAL COMMENTS - FREE TEXT/NARRATIVE: Patient is a 34 y/o female with left lower jaw pain, decayed teeth to the left lower jaw, and a rash that started in that area today. She was placed on clindamycin and has an apt to have several teeth in the area removed on the 22 of April in [place]. No fever, no difficulty breathing/swallowing, or N/V/D. Left Face/Facial Pain Score (Numeric/FACES): 7 - Related Data Allergies Allergy/AdvReac Type Severity Reaction Status Date / Time sulfamethoxazole Allergy Rash Verified 11/04/18 15:53 [From Bactrim] trimethoprim [From Bactrim] Allergy Rash Verified 11/04/18 15:53 prochlorperazine maleate AdvReac Severe Agitation Verified 11/04/18 15:53 [From Compazine] Home Meds: Home Meds Rivaroxaban [Xarelto] 20 mg PO DAILY 09/27/16 [History] Ibuprofen 800 mg PO TID PRN 02/05/18 [History] Gabapentin [Neurontin] 800 mg PO QID 11/01/18 [History] ARIPiprazole [Abilify] 15 mg PO DAILY 03/03/20 [History] Venlafaxine [Effexor XR] 75 mg PO DAILY 03/03/20 [History] Past Medical History HEENT History: Reports: Impaired Vision Other HEENT History: Pt had a tooth pulled on tuesday Cardiovascular History: Reports: Blood Clots/VTE/DVT, Hypertension, Other (See Below) Other Cardiovascular History: Factor S Factor V Gastrointestinal History: Reports: Other (See Below) Other Gastrointestinal History: Hx Duodenal Spasms 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 Musculoskeletal History: Reports: Fracture Other Musculoskeletal History: ACL, LCL surgery Neurological History: Reports: Other (See Below) Other Neuro History: [place] Palsey Psychiatric History: Reports: Anxiety, Depression Endocrine/Metabolic History: Reports: Obesity/BMI 30+ Hematologic History: Reports: Bleeding Disorder Other Hematologic History: S factor 5, 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 Oncologic (Cancer) History: Reports: Other (See Below) Other Oncologic History: Hx precancerous pap smear - Infectious Disease History Infectious Disease History: Reports: Chicken Pox - Past Surgical History HEENT Surgical History: Reports: Tonsillectomy, Other (See Below) Other HEENT Surgeries/Procedures: adnoids, current history of abcess of multiple teeth Cardiovascular Surgical History: Reports: None GI Surgical History: Reports: Cholecystectomy Musculoskeletal Surgical History: Reports: Other (See Below) Other Musculoskeletal Surgeries/Procedures:: meniscus repair - Right , ACL , - Left ACL, LCL, meniscus Social & Family History - Family History Family Medical History: No Pertinent Family History - Caffeine Use Caffeine Use: Reports: Energy Drinks ED ROS GENERAL - Review of Systems Review Of Systems: See Below Constitutional: Reports: No Symptoms HEENT: Reports: Dental Pain Respiratory: Reports: No Symptoms Cardiovascular: Reports: No Symptoms Skin: Reports: Rash Neurological: Reports: No Symptoms ED EXAM, GENERAL - Physical Exam Exam: See Below Exam Limited By: No Limitations General Appearance: Alert, No Apparent Distress Throat/Mouth: Normal Inspection, Normal Lips, Normal Gums, Normal Oropharynx, Normal Voice, No Airway Compromise, Other (multiple decayed and broken teeth to left lower jaw; no fluctuance; no induration; no drainage; no erythema; and no facial swelling) Head: Atraumatic, Normocephalic Neck: Normal Inspection, Supple Respiratory/Chest: No Respiratory Distress Neurological: Alert, Oriented Skin Exam: Warm, Dry, Rash, Other (small patch of erythematous, raised, macules to left chin; no induration; no tenderness) Course - Vital Signs Text/Narrative:: solumedrol 125 mg IM given. Switched patient to Augmentin, stop clindamycin. Follow up with dentist dilcia. Take pain medications (gabapentin and suboxone) as directed by PCP. Last Recorded V/S: Last Vital Signs Temp 35.7 C L 04/11/20 12:32 Pulse 67 04/11/20 12:32 Resp 16 04/11/20 12:32 BP 145/93 H 04/11/20 12:32 Pulse Ox Departure - Departure Time of Disposition: 13:30 Disposition: Home, Self-Care 01 Condition: Good Clinical Impression: Pain, dental, Drug rash - Discharge Information *PRESCRIPTION DRUG MONITORING PROGRAM REVIEWED*: Not Applicable *COPY OF PRESCRIPTION DRUG MONITORING REPORT IN PATIENT ANNIE: Not Applicable Instructions: Amoxicillin; Clavulanic Acid tablets Referrals: PCP,None [Primary Care Provider] - Care Plan Goals: Take augmentin as directed. Use tea bags as explained by provider. Call Health Care provider in [place] and ask increasing neurontin. Check into earlier appointment with oral surgeon. Use cold packs as directed for pain. Sepsis Event Note (ED) - Evaluation Sepsis Screening Result: No Definite Risk - Focused Exam Vital Signs: Vital Signs Temp Pulse Resp BP 04/11/20 12:32 35.7 C L 67 16 145/93 H
[2020-04-11] MEDS: methylPREDNISolone Sodium Succinate 125 MG/2 ML SDV IM ONE (14:16)
== END 2020-04-11 13:30 | disposition home or self-care (01) ==
LOC: LB.ED 11:19
DX: K02.9 Dental caries, unspecified (principal); L27.1 Localized skin eruption due to drugs and medicaments taken internally; T36.8X5A Adverse effect of other systemic antibiotics, initial encounter; I10 Essential (primary) hypertension; F41.9 Anxiety disorder, unspecified; F32.9 Major depressive disorder, single episode, unspecified; E66.9 Obesity, unspecified; Z68.42 Body mass index [BMI] 45.0-49.9, adult; Z88.1 Allergy status to other antibiotic agents; Z88.8 Allergy status to other drugs, medicaments and biological substances; Z88.2 Allergy status to sulfonamides; Z79.01 Long term (current) use of anticoagulants; Z79.899 Other long term (current) drug therapy; Z86.718 Personal history of other venous thrombosis and embolism
CPT/HCPCS: 96372; 99283; J2930

== ENCOUNTER 2021-04-28 08:57 | Emergency (ER) | payer MEDICAID ==
[2021-04-28 09:21] VITALS: BP 144/99; PULSE 93
--- NOTE | 2021-04-28 09:36 | EDM.PDOC ---
ED HPI GENERAL MEDICAL PROBLEM - General Chief Complaint: Back Pain or Injury Stated Complaint: LOWER BACK PAIN Time Seen by Provider: 04/28/21 09:10 - History of Present Illness INITIAL COMMENTS - FREE TEXT/NARRATIVE: Pt is here with C/O low back pain for a few days. There has not been any falls or injuries. She tried taking a muscle relaxer from her Mom and it helped. She also has been on Motrin but not a regular dose. No radicular pain. Back Pain Score (Numeric/FACES): 8 - Related Data Allergies Allergy/AdvReac Type Severity Reaction Status Date / Time sulfamethoxazole Allergy Rash Verified 04/28/21 09:15 [From Bactrim] trimethoprim [From Bactrim] Allergy Rash Verified 04/28/21 09:15 prochlorperazine maleate AdvReac Severe Agitation Verified 04/28/21 09:15 [From Compazine] Home Meds: Home Meds Rivaroxaban [Xarelto] 20 mg PO DAILY 09/27/16 [History] Ibuprofen 800 mg PO TID PRN 02/05/18 [History] Gabapentin [Neurontin] 800 mg PO QID 11/01/18 [History] ARIPiprazole [Abilify] 15 mg PO DAILY 03/03/20 [History] Venlafaxine [Effexor XR] 150 mg PO DAILY 03/03/20 [History] Past Medical History HEENT History: Reports: Impaired Vision Other HEENT History: Pt had a tooth pulled on tuesday Cardiovascular History: Reports: Blood Clots/VTE/DVT, Hypertension, Other (See Below) Other Cardiovascular History: Factor S Factor V Gastrointestinal History: Reports: Other (See Below) Other Gastrointestinal History: Hx Duodenal Spasms 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 Musculoskeletal History: Reports: Fracture Other Musculoskeletal History: ACL, LCL surgery Neurological History: Reports: Other (See Below) Other Neuro History: [place] Palsey Psychiatric History: Reports: Anxiety, Depression Endocrine/Metabolic History: Reports: Obesity/BMI 30+ Hematologic History: Reports: Bleeding Disorder Other Hematologic History: S factor 5, 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 Oncologic (Cancer) History: Reports: Other (See Below) Other Oncologic History: Hx precancerous pap smear - Infectious Disease History Infectious Disease History: Reports: Chicken Pox - Past Surgical History HEENT Surgical History: Reports: Tonsillectomy, Other (See Below) Other HEENT Surgeries/Procedures: adnoids, current history of abcess of multiple teeth Cardiovascular Surgical History: Reports: None GI Surgical History: Reports: Cholecystectomy Musculoskeletal Surgical History: Reports: Other (See Below) Other Musculoskeletal Surgeries/Procedures:: meniscus repair - Right , ACL , - Left ACL, LCL, meniscus Social & Family History - Family History Family Medical History: No Pertinent Family History - Caffeine Use Caffeine Use: Reports: Energy Drinks ED ROS GENERAL - Review of Systems Review Of Systems: Comprehensive ROS is negative, except as noted in HPI. Musculoskeletal: Reports: Back Pain ED EXAM,LOWER BACK PAIN/INJURY - Physical Exam Exam: See Below Exam Limited By: Other (She can change positions in a slighlty gaured fashion.) Back Exam: Other (She has pain over the SI joints today, and has a hot pack applied. Also some pain in the lower paraspinal muscles bilateral. skin is intact, no redness.) Course - Vital Signs Last Recorded V/S: Last Vital Signs Temp 99.3 F 04/28/21 09:20 Pulse 93 04/28/21 09:20 Resp 16 04/28/21 09:20 BP 144/99 H 04/28/21 09:20 Pulse Ox 95 04/28/21 09:20 - Re-Assessments/Exams Free Text/Narrative Re-Assessment/Exam: 04/28/21 09:34 I will give her a script for Flexeril for 7 days. She is to use Motrin alternating with Tylenol every 3 hours until she is better, then wean down the dosing. Continue with heat prn. I will take her off work this week. Follow up prn. 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 Rest, alternate Tylenol and Ibuprofen as needed for additional pain control. Use heat or ice as tolerated for comfort. Stretch your back before and after long working days for muscle relief. Sepsis Event Note (ED) - Evaluation Sepsis Screening Result: No Definite Risk - Focused Exam Vital Signs: Vital Signs Temp Pulse Resp BP Pulse Ox 04/28/21 09:20 99.3 F 93 16 144/99 H 95
== END 2021-04-28 09:30 | disposition home or self-care (01) ==
LOC: LB.ED 08:57
DX: S39.012A Strain of muscle, fascia and tendon of lower back, initial encounter (principal); I10 Essential (primary) hypertension; E66.9 Obesity, unspecified; Z68.41 Body mass index [BMI] 40.0-44.9, adult; Z86.718 Personal history of other venous thrombosis and embolism; Z88.2 Allergy status to sulfonamides; Z88.8 Allergy status to other drugs, medicaments and biological substances; Z79.01 Long term (current) use of anticoagulants; Z79.899 Other long term (current) drug therapy
CPT/HCPCS: 99283

== ENCOUNTER 2021-10-14 19:52 | Emergency (ER) | payer MEDICAID ==
[2021-10-14] MEDS ORDERED: Amoxicillin/Clavulanate K 875-125 MG Tab ONE (20:00)
[2021-10-14 20:52] VITALS: BP 160/100; PULSE 98
== END 2021-10-14 20:40 | disposition home or self-care (01) ==
LOC: LB.ED 19:52
DX: K02.9 Dental caries, unspecified (principal); I10 Essential (primary) hypertension; E66.9 Obesity, unspecified; Z68.43 Body mass index [BMI] 50.0-59.9, adult; Z88.2 Allergy status to sulfonamides; Z88.8 Allergy status to other drugs, medicaments and biological substances; Z79.899 Other long term (current) drug therapy; Z90.49 Acquired absence of other specified parts of digestive tract
CPT/HCPCS: 99282; A9270

== ENCOUNTER 2022-07-22 10:23 | Emergency (ER) | payer MEDICAID ==
[2022-07-22 11:44] LABS: CORONAVIRUS COVID-19 NAA NEGATIVE (NEGATIVE)
[2022-07-22 12:02] VITALS: BP 124/80; PULSE 95
== END 2022-07-22 11:55 | disposition home or self-care (01) ==
LOC: LB.ED 10:23
DX: J18.9 Pneumonia, unspecified organism (principal); Z20.822 Contact with and (suspected) exposure to COVID-19; Z88.1 Allergy status to other antibiotic agents; Z88.8 Allergy status to other drugs, medicaments and biological substances
CPT/HCPCS: 0241U; 87430; 99283

== ENCOUNTER 2022-08-27 12:01 | Emergency (ER) | payer MEDICAID ==
[2022-08-27 12:30] VITALS: BP 154/91; PULSE 88
== END 2022-08-27 12:46 | disposition home or self-care (01) ==
LOC: SUPCPDRO 12:01 → LB.ED 12:01
DX: B86 Scabies (principal); B88.9 Infestation, unspecified; K21.9 Gastro-esophageal reflux disease without esophagitis; I10 Essential (primary) hypertension; E66.9 Obesity, unspecified; Z68.43 Body mass index [BMI] 50.0-59.9, adult; Z88.1 Allergy status to other antibiotic agents; Z88.8 Allergy status to other drugs, medicaments and biological substances; Z79.01 Long term (current) use of anticoagulants; Z86.16 Personal history of COVID-19
CPT/HCPCS: 99282

== ENCOUNTER 2022-10-14 21:15 | Emergency (ER) | payer MEDICAID ==
[2022-10-14] MEDS ORDERED: Diphtheria/Tetanus Toxoids,Adult (Td) 0.5 ML SDV IM ONE (21:56)
[2022-10-14] MEDS ORDERED: Amoxicillin/Clavulanate K 875-125 MG Tab ONE (22:10)
[2022-10-15 00:18] VITALS: BP 143/96; PULSE 82
== END 2022-10-14 22:15 | disposition home or self-care (01) ==
LOC: LB.ED 21:15
DX: S61.250A Open bite of right index finger without damage to nail, initial encounter (principal); I10 Essential (primary) hypertension; E66.9 Obesity, unspecified; Z88.1 Allergy status to other antibiotic agents; Z88.8 Allergy status to other drugs, medicaments and biological substances; Z86.16 Personal history of COVID-19; Z68.43 Body mass index [BMI] 50.0-59.9, adult; Z23 Encounter for immunization; W55.01XA Bitten by cat, initial encounter
CPT/HCPCS: 90471; 90714; 99283; A9270

== ENCOUNTER 2023-12-25 10:48 | Emergency (ER) | payer MEDICAID ==
[2023-12-25] MEDS ORDERED: Amoxicillin/Clavulanate K 875-125 MG Tab ONE (12:30)
[2023-12-25 21:56] VITALS: BP 126/72; PULSE 81
== END 2023-12-25 12:40 | disposition home or self-care (01) ==
LOC: LB.ED 10:48
DX: K04.7 Periapical abscess without sinus (principal); Z79.899 Other long term (current) drug therapy; Z88.2 Allergy status to sulfonamides; Z88.8 Allergy status to other drugs, medicaments and biological substances
CPT/HCPCS: 99283; A9270-GY

== ENCOUNTER 2024-05-03 11:19 | Emergency (ER) | payer MEDICAID ==
[2024-05-03] MEDS: Ondansetron 4 MG/2 ML SDV IVPUSH ONE (12:06)
[2024-05-03] MEDS: Metoclopramide 10 MG/2 ML SDV IVPUSH ONE (12:06)
[2024-05-03 12:16] LABS: BASOPHILS ABSOLUTE AUTO 0.01 K/uL (0.02-0.10); BASOPHILS PERCENT AUTO 0.1 % (0.0-0.5); EOSINOPHILS ABSOLUTE AUTO 0.11 K/uL (0.04-0.40); EOSINOPHILS PERCENT AUTO 1.6 % (1.0-5.0); HEMATOCRIT 36.6 % (37.0-47.0); HEMOGLOBIN 12.7 g/dL (11.5-16.5); LYMPHOCYTES ABSOLUTE AUTO 1.66 K/uL (1.50-4.00); MEAN CORPUSCULAR HEMOGLOBIN 28.2 pg (27.0-32.0); MEAN CORPUSCULAR HGB CONC 34.7 g/dL (31.0-35.0); MEAN CORPUSCULAR VOLUME 81 fL (76-96); MEAN PLATELET VOLUME 10.4 fL (6.0-10.0); MONOCYTES ABSOLUTE AUTO 0.48 K/uL (0.20-0.80); MONOCYTES PERCENT AUTO 6.9 % (3.0-10.0); NEUTROPHILS ABSOLUTE AUTO 4.66 K/uL (2.00-7.50); NEUTROPHILS PERCENT AUTO 67.4 % (45.0-70.0); PLATELET COUNT,PLT 208 K/uL (150-500); RED BLOOD CELL COUNT 4.51 M/uL (3.80-5.80); RED CELL DISTRIBUTION WIDTH 13.1 % (11.0-16.0); WHITE BLOOD CELL COUNT,WBC 6.9 K/uL (4.0-11.0)
[2024-05-03] MEDS: Sodium Chloride 0.9% 1,000 ML IV ONE (12:19)
[2024-05-03 12:26] LABS: ANION GAP 13.3 mmol/L (5.0-15.0); BUN/CREATININE RATIO 5.6 (6-25); CALCIUM 9.2 mg/dL (8.5-10.1); CARBON DIOXIDE,CO2 26.8 mmol/L (21.0-32.0); CREATININE 0.71 mg/dL (0.55-1.02); EST CRCL DRUG DOSING (CG) 106.52 mL/min; POTASSIUM,K 4.1 mmol/L (3.5-5.1)
[2024-05-03 17:36] VITALS: BP 170/89; PULSE 87
== END 2024-05-03 15:56 | disposition home or self-care (01) ==
LOC: LB.ED 11:19
DX: O21.9 Vomiting of pregnancy, unspecified (principal); O99.281 Endocrine, nutritional and metabolic diseases complicating pregnancy, first trimester; E86.0 Dehydration; E66.9 Obesity, unspecified; Z90.49 Acquired absence of other specified parts of digestive tract; Z79.899 Other long term (current) drug therapy; Z88.2 Allergy status to sulfonamides; Z88.8 Allergy status to other drugs, medicaments and biological substances; Z3A.00 Weeks of gestation of pregnancy not specified
CPT/HCPCS: 36415; 80048; 85025; 96361; 96374; 96375; 99284; J2405; J2765; J7030; 99283

== ENCOUNTER 2024-09-04 21:25 | Emergency (ER) | payer MEDICAID ==
[2024-09-04 21:51] VITALS: PULSE 103
[2024-09-04] MEDS: Amoxicillin 500 MG Cap PO ONE (22:04)
[2024-09-04 22:24] VITALS: BP 165/113
== END 2024-09-04 22:10 | disposition home or self-care (01) ==
LOC: LB.ED 21:25
DX: O99.891 Other specified diseases and conditions complicating pregnancy (principal); K08.89 Other specified disorders of teeth and supporting structures; O99.332 Smoking (tobacco) complicating pregnancy, second trimester; F17.210 Nicotine dependence, cigarettes, uncomplicated; Z79.899 Other long term (current) drug therapy; Z88.2 Allergy status to sulfonamides; Z88.8 Allergy status to other drugs, medicaments and biological substances; Z3A.27 27 weeks gestation of pregnancy
CPT/HCPCS: 99283; A9270-GY